=== PATIENT | female | born 1940 | race Caucasian/White ===

== ENCOUNTER 2022-11-06 23:48 | Emergency (ER) | payer MEDICARE, OTHER ==
--- NOTE | 2022-11-07 00:31 | NUR ---
Pt not in waiting room, per bank vault clerk, states going to another hospital.
== END 2022-11-07 00:32 | disposition left against medical advice (07) ==
LOC: ER 23:48
DX: Z53.21 Procedure and treatment not carried out due to patient leaving prior to being seen by health care provider (principal)